=== PATIENT | female | born 1955 | race African-American/Black ===

== ENCOUNTER 2017-03-19 09:24 | Inpatient (IN) | payer OTHER ==
[2017-03-19] VITALS (19 sets, daily range): BP systolic 32–158; BP diastolic 12–128
[~2017-03-19] VITALS: Ht 160 cm; Wt 48.1 kg
--- NOTE | ~2017-03-19 | EEG ---
[facility] [place] [address] ELECTROENCEPHALOGRAM Name: RAMIRO CROOK Room #: 238-P ADM IN M.R.#: [id number] Admission: 03/19/17 Attend Phys: Noman Barrett MD Discharge: Date of : 59 Report #: [id number] THIS REPORT FOR: //name// CC: FAM unknown Noman Barrett DATE OF SERVICE: 03/19/2017 This patient is being evaluated for altered mental status. Background activity in this patient's EEG is about 7 Hz and 25 microvolt. It is a symmetrical activity, but it is slow on both sides. Photic stimulation is unremarkable. IMPRESSION: This is an abnormal EEG because it is disorganized and poorly formed. That is a nonspecific abnormality, which can occur with encephalopathy, effect of psychotropic medication, dementia, etc. Clinical correlation is recommended. Thank you very much for this referral. <ELECTRONICALLY SIGNED> By: Austin Dorsey MD 03/20/17 1227 26 55 Austin Dorsey MD /nt
--- NOTE | ~2017-03-19 | HC ---
[facility] [place] [address] CONSULTATION Name: RAMIRO CROOK Room #: 304-P [facility] IN ..#: [id number] Admission: 03/19/17 Attend Phys: Noman Barrett MD Discharge: 03/24/17 Date of : 59 Report #: [id number] THIS REPORT FOR: //name// CC: FAM unknown Noman Barrett DATE OF SERVICE: 03/23/2017 HISTORY OF PRESENT ILLNESS: The patient is a 61-year-old -Vietnamese female who was found unresponsive at her home. She was seen by the emergency medical services, sats were in the 40-50s. She had fluid in her mouth. She was noted to have an acute encephalopathy, thought to be hypoxic and metabolic. She had an elevated troponin, elevated creatinine with acute renal insufficiency. She had acute respiratory failure, aspiration pneumonia. She had cardiogenic shock. The acute hypoxic hypercapnic respiratory failure was thought to likely be secondary to a pulmonary embolism with a positive V/Q scan. She is being anticoagulated. She continues in the intensive care unit. We are seeing her in rehabilitation medicine consultation. PAST MEDICAL HISTORY: Includes history of asthma and/or COPD for which she was on 3 liters nasal prong O2 premorbidly. She is noted to have bilateral lower extremity neuropathy, history of bilateral hip replacements. MEDICATIONS: Please see the full medication listing. ALLERGIES: No known drug allergies. SOCIAL HISTORY: Lives at [facility] in an independent living apartment. Premorbid gait was with a walker. They are apparently 6 steps in. She has involved daughters. REVIEW OF SYSTEMS: Did not offer any current complaints of chest pain, shortness of breath or abdominal discomfort. She notes distal numbness of her lower extremities with the neuropathy. She has had bilateral hips replaced. No other focal extremity pain complaints, who verbalized at this time. Did not offer any complaints of headache, chills. PHYSICAL EXAMINATION: GENERAL: A 61-year-old -Vietnamese female seen in the intensive care unit. VITAL SIGNS: Last recorded temperature 98.5, pulse 86, respirations 21, blood pressure 155/75. NEUROLOGIC: She is alert, pleasant. Nasal prong O2 is in place. Facies are symmetric. She has functional range of motion of both upper extremities. Strength is grade 4-/5. DTRs are trace to 1. In her lower extremities, no focal calf swelling, functional range of motion, strength is a grade 4- to 3+/5. DTRs are trace to 1. There is a latency to her responses. [place] [address] CONSULTATION Name: RAMIRO CROOK Room #: 304-P [facility] IN ..#: [id number] Admission: 03/19/17 Attend Phys: Noman Barrett MD Discharge: 03/24/17 Date of : 59 Report #: [id number] basic 1 step commands. Tone of her upper and lower extremities appeared to be intact. ASSESSMENT: A 61-year-old -Vietnamese female with the following problem list: 1. Hypoxic encephalopathy. Neurology has been involved. 2. Acute hypoxic hypercapnic respiratory failure, which has improved. 3. Pulmonary embolism with positive V/Q scan, now being anticoagulation. 4. Cardiogenic shock. 5. Severe acidosis. 6. Apparent aspiration pneumonia. 7. Shock liver. 8. Troponin elevation likely due to PE. 9. Acute renal insufficiency with lactic acidosis that is improving. 10. History of bilateral lower extremity neuropathy. 11. History of previous bilateral hip replacements. 12. Past history of asthma for which she was on 3 liters nasal cannula premorbidly. PLAN: Therapy evaluations are underway. She will likely benefit from a short acute in-hospital inpatient rehabilitation stay to maximize her functional independence prior to returning back to her own independent living apartment. Therapies are working with her and she continues in the intensive care unit. We will be glad to follow along with you as she further medically stabilizes. Note that occupational therapy is to evaluate. We will be glad to follow along with you regarding her rehab therapy needs. <ELECTRONICALLY SIGNED> By: Glen Roth MD 03/26/17 1556 1628 0427 Glen Roth MD /nt
--- NOTE | ~2017-03-19 | HC ---
[facility] [place] [address] CONSULTATION Name: RAMIRO CROOK Room #: 238-P ADM IN M.R.#: [id number] Admission: 03/19/17 Attend Phys: Noman Barrett MD Discharge: Date of : 59 Report #: [id number] THIS REPORT FOR: //name// CC: FAM unknown Noman Barrett MD DATE OF SERVICE: 03/19/2017 REFERRING PROVIDER: Dr. Barrett. REASON FOR CONSULTATION: Respiratory failure. CHIEF COMPLAINT: Loss of consciousness. HISTORY OF PRESENT ILLNESS: Our group was asked to see the patient in consultation while hospitalized in the ICU at [facility], history very limited due to patient being on mechanical ventilatory support and limited records available as well as no family immediately present. This is a 61-year-old woman who apparently lives in a alf for unclear reasons and was found unresponsive on the floor of her assisted living apartment. EMS noted her to be hypoglycemic and have what appeared to be vomit in her airway. This was cleared and the patient received dextrose IV and on presentation to the Emergency Department was noted to be significantly hypoxemic and was emergently intubated and is now in the ICU on mechanical ventilatory support. Of note, she was also hypothermic. Chest radiograph did suggest some mild infiltrates, currently is somewhat arousable, may follow simple commands, but otherwise denies any other significant history that we can obtain. ALLERGIES: None known. PAST MEDICAL HISTORY: Uncertain. Possible underlying cardiac disease, appears to be on possible anticoagulation. PAST SURGICAL HISTORY: Uncertain. SOCIAL HISTORY: Unobtainable. FAMILY HISTORY: Unobtainable. REVIEW OF SYSTEMS: Unobtainable due to current status, although the patient is able to nod yes/no noting no chest pains, nausea, vomiting or abdominal pain at this time. PHYSICAL EXAMINATION: VITAL SIGNS: Temperature was 33.9 on presentation, pulse 108 and regular, [facility] [address] [place] [address] CONSULTATION Name: RAMIRO CROOK Room #: [address] [place] [address] [place] [facility]#: [id number] Admission: 03/19/17 Attend Phys: Noman Barrett MD Discharge: Date of : 59 Report #: [id number] respiratory rate 28, still on mechanical ventilator and blood pressure 93/49. GENERAL: This is a thin, middle-aged woman, somnolent but arousable. ENT: Endotracheal tube in place, foul smell coming from mouth. NECK: Thin, supple, no lymphadenopathy, right EJ IV is noted. LUNGS: Coarse rhonchi noted throughout. CARDIOVASCULAR: Heart was difficult to auscultate due to loud breath sounds, but regular, no murmurs. ABDOMEN: Soft, did not appear tender, diminished bowel sounds, no masses noted. EXTREMITIES: Were cool distally with 1+ pulses. No significant edema. NEUROLOGIC: The patient is sedate, but arousable and will move all extremities. LABORATORY DATA: White blood cell count 11,000, hemoglobin 11, hematocrit 39, platelet count 335. Sodium was 144, potassium 3.1, chloride 96, bicarbonate 32, BUN 39, creatinine ____, glucose 8.2, troponin 4.5. ProBNP 15,512. EKG done in the Emergency Department revealed sinus rhythm, no significant ST or T-waves changes suggesting acute [place]. Chest x-ray revealed hyperinflation suggestive of obstructive lung disease, also cardiomegaly, mild central perihilar infiltrates. IMPRESSION: 1. Altered mental status with findings of hypoglycemia, but underlying other event such as sepsis to be of concern, particularly given pulmonary infiltrates and hypothermia. 2. Probable sepsis. 3. Non-ST elevation myocardial infarction as evidenced by elevated troponin. 4. Acute respiratory failure. 5. Pneumonia, likely aspiration. 6. Respiratory acidosis. 7. Renal failure, likely acute renal insufficiency. SUGGESTIONS: 1. Sepsis protocol. 2. Await sputum and blood cultures. 3. Broad-spectrum antimicrobials. 4. Check C. difficile for C. difficile colitis. 5. Nephrology consultation. 6. Follow up arterial blood gas with increased minute volume, to see if this corrects acidosis. 7. Obtain further history once family available. 8. Trend troponins. 9. Cardiology consultation. 10. Additional recommendations to follow. Thank you for requesting our suggestions. [address] [address] CONSULTATION Name: RAMIRO CROOK Room #: 238-P ADM IN M.R.#: [id number] Admission: 03/19/17 Attend Phys: Noman Barrett MD Discharge: Date of : 59 Report #: [id number] Total critical care time 40 minutes, not including procedures. Discussed with Dr. Barrett, nursing available at the bedside. <ELECTRONICALLY SIGNED> By: Cruz Olivera MD 03/22/17 1453 1342 2108 Cruz Olivera MD /nt
--- NOTE | ~2017-03-19 | EKG ---
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: [facility] : 1955 Requested By: Syed Shipman Order Number: [id number] MD: Donell Tijerina Measurements Intervals [place] Rate: 97 P: 89 IN: 148 QRS: 94 QRSD: 112 T: -65 QT: 368 QTc: 468 Interpretive Statements Sinus rhythm Borderline intraventricular conduction delay Repol abnrm suggests ischemia, inferior leads No previous ECG available for comparison Electronically Signed On 03-20-2017 11:23:58 CDT by Donell Tijerina [email or web address] <ELECTRONICALLY SIGNED> By: Donell Tijerina MD, [facility] 03/20/17 1123 8 8 Donell Tijerina MD, FAC /EPI
--- NOTE | ~2017-03-19 | EKG ---
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 : 1955 Requested By: Donell Tijerina Order Number: [id number] MD: Donell Tijerina Measurements Intervals [place] Rate: 87 P: 86 HI: 139 QRS: 89 QRSD: 111 T: 104 QT: 463 QTc: 557 Interpretive Statements Sinus rhythm Borderline abnrm T, anterolateral leads Prolonged QT interval Compared to ECG 03/19/2017 09:29:39 Nonspecific change in the ST and T-wave segments Electronically Signed On 03-21-2017 11:55:30 CDT by Donell Tijerina [email or web address] <ELECTRONICALLY SIGNED> By: Donell Tijerina MD, [facility] 03/21/17 1155 0756 0756 Donell Tijerina MD, [facility] /EPI
--- NOTE | ~2017-03-19 | HC ---
[facility] [place] [address] CONSULTATION Name: RAMIRO CROOK Room #: 238-P [facility] IN M.R.#: [id number] Admission: 03/19/17 Attend Phys: Noman Barrett MD Discharge: Date of : 59 Report #: [id number] THIS REPORT FOR: //name// CC: FAM unknown Noman Barrett DATE OF SERVICE: 03/19/2017 ATTENDING PHYSICIAN: Dr. Barrett REASON FOR CONSULTATION: Elevated creatinine in an unresponsive patient. HISTORY OF PRESENT ILLNESS: Little is known about this 61-year-old patient brought in after being found down and unresponsive. Apparently, her daughter was here earlier. She has a previous history of CHF, has had respiratory failure and been on the ventilator previously at [facility]. PAST MEDICAL HISTORY: Otherwise is unknown. SOCIAL HISTORY: Otherwise unknown. REVIEW OF SYSTEMS: Cannot be taken. She is unresponsive on the ventilator. PHYSICAL EXAMINATION: GENERAL: This is a patient who is comatose, seen in the ICU. She is also sedated. She is on the ventilator with endotracheal tube in place. VITAL SIGNS: Blood pressure 80/69. SKIN: Shows somewhat poor turgor. SKELETAL: Shows her to be well developed, well nourished. HEENT: Extraocular movements cannot be tested. Eyes are ____ shut. Endotracheal tube is in place. NECK: No carotid bruits are heard. No lymphadenopathy is noted. CHEST: Shows diminished breath sounds bilaterally. HEART: Tones are distant, but regular. ABDOMEN: Soft with diminished bowel sounds. EXTREMITIES: Show trace peripheral edema. Peripheral pulses are diminished. LABORATORY DATA: The urinalysis did show 3+ protein with squams and a few bacteria. Hemoglobin 11.1, white count 10.5, platelets 335. Sodium 144, potassium 3.1, chloride 96, bicarbonate 32, BUN 39, creatinine 4.4, calcium is 8.2. Chest x-ray showed minimal infiltrates. CT of the head was negative. ASSESSMENT AND PLAN: 1. Elevated creatinine, acute versus chronic. I will have to try to find her daughter who is not 1here at the present time and see if we can get any further history, although I am told from the emergency room personnel that she was not [address] [address] CONSULTATION Name: RAMIRO CROOK Room #: 238-P ADM IN .R.#: [id number] Admission: 03/19/17 Attend Phys: Noman Barrett MD Discharge: Date of : 59 Report #: [id number] forthcoming with too much in the way of history, apparently has had respiratory failure and heart failure in the past and does have an elevated troponin suggesting possible acute myocardial infarction as the etiology here. Of course, a CPK will be important as she was found down. This certainly could be some degree of rhabdomyolysis and that will be checked and I will recheck her serum phosphorus here with her next blood draw. 2. Respiratory failure and high pCO2, hopefully this will improve with ventilation. I will add bicarbonate to the IV fluids in an effort to buffer that a bit. 3. Hypotension. IV fluids are being given. 4. History of congestive heart failure. <ELECTRONICALLY SIGNED> By: Kenny Bentley MD 03/23/17 0735 1241 2113 Darnell Banerjee MD /nt
--- NOTE | ~2017-03-19 | 2DMMODE ---
[facility] [address] [place] [address] 2 D/M-MODE ECHOCARDIOGRAM Name: AMBREENRAMIRO Jermaine Room #: 238-P [facility] IN .R.#: [id number] Admission: 03/19/17 Attend Phys: Noman Barrett, Discharge: Date of : 59 Date of Service: 03/19/17 1529 Report #: [id number] THIS REPORT FOR: //name// APPROVED REPORT Study performed: 03/19/2017 13:16:10 EXAM: Comprehensive 2D, Doppler, and color-flow Echocardiogram Patient Location: Bedside Room #: 238 Blood Pressure: 93/49 mmHg HR: 91 bpm Rhythm: NSR Other Information Study Quality: Adequate/only off axis apical window. Technically limited study due to limited mobility. Patient in ICU on vent.. Indications Unresponsiveness. Congestive heart failure. 2D Dimensions LVEF(%): 76.61 (>50%) IVSd: 8.78 (7-11mm) LVOT Diam: 20.33 (18-24mm) LVDd: 41.19 mm PWd: 9.71 (7-11mm) LVDs: 22.71 (25-40mm) Aortic Root: 28.58 mm Cardoza's LVEF: 76.61 % Aortic Valve AoV Peak Robin.: 1.43 m/s AO Peak Gr.: 8.22 mmHg LVOT Max P.62 mmHg LVOT Max V: 1.19 m/s MARU Vmax: 2.68 cm2 Mitral Valve E/A Ratio: 1.4 MV Decel. Time: 129.31 ms MV E Max Robin.: 1.00 m/s MV A Robin.: 0.74 m/s [facility] [address] [place] [address] 2 D/M-MODE ECHOCARDIOGRAM Name: RAMIRO CROOK Room #: 238-P [facility] IN ..#: [id number] Admission: 03/19/17 Attend Phys: Noman Barrett, Discharge: Date of : 59 Date of Service: 03/19/17 1529 Report #: [id number] MV PHT: 37.50 ms IVRT: 76.12 ms Pulmonary Valve PV Peak Robin.: 1.08 m/s PV Peak Gr.: 4.64 mmHg Tricuspid Valve TR Peak Robin.: 3.02 m/s RAP Estimate: 15.00 mmHg TR Peak Gr.: 36.56 mmHg RVSP: 52.00 mmHg Left Ventricle The left ventricle is normal size. Flattened septum consistent with right ventricular pressure overload. There is normal left ventricular wall thickness. The left ventricular systolic function is normal. The left ventricular ejection fraction is within the normal range. LVEF is 55%. This study is not technically sufficient to allow evaluation of the LV diastolic function. Right Ventricle Right ventricle is moderate to severely dilated. Right ventricle is mildly hypokinetic. Atria The left atrium size is normal. Right atrium is severely dilated. Aortic Valve The aortic valve is normal in structure. Mild to moderate aortic regurgitation. There is no aortic valvular stenosis. Mitral Valve The mitral valve is normal in structure. Mild mitral regurgitation. No evidence of mitral valve stenosis. Tricuspid Valve The tricuspid valve is normal in structure. There is moderate tricuspid regurgitation. The right atrial pressure is estimated at 15 mmHg. There is moderate pulmonary hypertension with an estimated PAP of 52 mmHg. Pulmonic Valve The pulmonary valve is normal in structure. Mild pulmonic regurgitation. Great Vessels The aortic root is normal in size. IVC is dilated and collapses [facility] [address] [place] [address] 2 D/M-MODE ECHOCARDIOGRAM Name: RAMIRO CROOK Jermaine Room #: 238-P [facility] IN ..#: [id number] Admission: 03/19/17 Attend Phys: Noman Barrett, Discharge: Date of : 59 Date of Service: 03/19/17 1529 Report #: [id number] <50% with inspiration. Pericardium There is no pericardial effusion. <Conclusion> The left ventricular systolic function is normal. Flattened septum consistent with right ventricular pressure overload. LVEF 55%. The aortic valve is normal in structure without stenosis or insufficiency RV enlargement and hypokinesis. RA enlargement The mitral valve is normal in structure. Mild mitral regurgitation. Pulmonary artery pressure of 40mmHg IVC is dilated and collapses <50% with inspiration. There is no pericardial effusion. <ELECTRONICALLY SIGNED> By: Donell Tijerina MD, [facility] 03/19/17 1529 1529 1529 Donell Tijerina MD, FACC /INF
[2017-03-19 09:54] LABS: HEMATOCRIT 38.8 % (37.0-47.0); HEMOGLOBIN 11.1 gm/dL (12.0-15.0); MCHC 28.7 g/dL (28.0-37.0); MCV 83.6 fL (80.0-100.0); RBC 4.64 mil/uL (4.20-5.00); RDW 21.3 % (10.5-14.5); WBC 10.5 thou/uL (4.0-11.0)
[2017-03-19 09:57] LABS: ANION GAP 16 mmol/L (7-16); BUN 39 mg/dL (7-18); CALCIUM 8.2 mg/dL (8.5-10.1); CHLORIDE 96 mmol/L (98-107); CO2 32 mmol/L (21-32); CREATININE 4.4 mg/dL (0.6-1.0); GLUCOSE 91 mg/dL (74-106); POTASSIUM 3.1 mmol/L (3.5-5.1); SODIUM 144 mmol/L (136-145)
[2017-03-19 10:06] LABS: APTT 28.7 Seconds (24.5-32.8)
[2017-03-19 10:07] LABS: PROTIME 26.2 Seconds (9.3-11.4)
[2017-03-19 10:08] LABS: INR 2.5
[2017-03-19 10:11] LABS: NT-PRO BRAIN NAT PEPTIDE 15512 pg/mL (<300); SALICYLATE < 2.8 mg/dL (2.8-20.0)
[2017-03-19 10:13] LABS: TROPONIN-I 4.51 ng/mL (<0.04-0.07)
[2017-03-19 10:24] LABS: URINE BLOOD 3+ (Negative); URINE COLOR YELLOW; URINE GLUCOSE-RANDOM* NEGATIVE (Negative); URINE KETONES NEGATIVE (Negative); URINE LEUKOCYTES-REFLEX NEGATIVE (Negative); URINE PROTEIN (DIPSTICK) 3+ (Negative); URINE SPECIFIC GRAVITY 1.025 (1.003-1.035); URINE UROBILINOGEN 0.2 E.U./dl (0.2-1.0)
[2017-03-19 10:26] LABS: ICTOTEST (BILI CONFIRMATORY) Negative (Negative); URINE BILIRUBIN NEGATIVE (Negative)
[2017-03-19 10:31] LABS: ABG SAMPLE TYPE ARTERIAL; BE(vivo) -2.9 mmol/L (-2 to +3); HCO3 27.2 mmol/L (22.0-26.0); LACTATE 10.71 mmol/L (0.5-2.0); O2(CT) 17.3 mL/dL (15.0-23.0); O2Hb 96.2 % (92.0-98.0); PCO2 77.3 mmHg (35.0-45.0); PO2 258.9 mmHg (80.0-100.0); STICK SITE L.BRACHIAL; TIDAL VOLUME 450 ml; pH 7.165 (7.360-7.450); sO2 99.4 % (92.0-98.0); tCO2 29.6 mmol/L (24.0-30.0)
[2017-03-19 10:34] LABS: SQUAMOUS >10 Many /LPF (0-3)
[2017-03-19 10:35] LABS: CASTS None Seen /LPF (None Seen); CRYSTALS None Seen /LPF (None Seen)
[2017-03-19 10:37] LABS: URINE RBC 3-10 Few /HPF (0-2); URINE WBC-REFLEX 0-5 Rare /HPF (0-5)
[2017-03-19 10:39] LABS: AMORPHOUS URATES Moderate /LPF (None Seen); AMP/METHAMP Negative (Negative); BARBITURATES Negative (Negative); BENZODIAZEPINES POSITIVE (Negative); COCAINE Negative (Negative); METHADONE Negative (Negative); OPIATES POSITIVE (Negative); PCP Negative (Negative); THC Negative (Negative)
[2017-03-19 12:04] LABS: ABG SAMPLE TYPE ARTERIAL; BE(vivo) -3.2 mmol/L (-2 to +3); HCO3 27.4 mmol/L (22.0-26.0); O2(CT) 15.6 mL/dL (15.0-23.0); O2Hb 92.5 % (92.0-98.0); pH 7.139 (7.360-7.450); sO2 95.5 % (92.0-98.0); tCO2 29.9 mmol/L (24.0-30.0)
[2017-03-19 12:05] LABS: LACTATE 9.17 mmol/L (0.5-2.0); PCO2 82.5 mmHg (35.0-45.0); STICK SITE L.BRACHIAL; TIDAL VOLUME 450 ml
[2017-03-19 14:20] LABS: ABG SAMPLE TYPE ARTERIAL; BE(vivo) 0.6 mmol/L (-2 to +3); HCO3 28.4 mmol/L (22.0-26.0); LACTATE 7.84 mmol/L (0.5-2.0); O2(CT) 15.6 mL/dL (15.0-23.0); O2Hb 95.5 % (92.0-98.0); PCO2 61.6 mmHg (35.0-45.0); PO2 115.2 mmHg (80.0-100.0); STICK SITE LINE; pH 7.281 (7.360-7.450); sO2 97.6 % (92.0-98.0); tCO2 30.3 mmol/L (24.0-30.0)
[2017-03-19 14:21] LABS: TIDAL VOLUME 450 ml
[2017-03-19 14:48] LABS: APTT 32.2 Seconds (24.5-32.8); FIBRINOGEN 151.4 mg/dL (210-360)
[2017-03-19 14:49] LABS: HEMATOCRIT 34.9 % (37.0-47.0); HEMOGLOBIN 10.3 gm/dL (12.0-15.0); MCH 23.8 pg (26.0-34.0); MCHC 29.6 g/dL (28.0-37.0); MCV 80.5 fL (80.0-100.0); PLATELET COUNT 297 thou/uL (150-400); RBC 4.33 mil/uL (4.20-5.00); RDW 20.8 % (10.5-14.5); WBC 19.5 thou/uL (4.0-11.0)
[2017-03-19 14:50] LABS: MANUAL DIFF YES
[2017-03-19 15:06] LABS: CALCIUM 5.6 mg/dL (8.5-10.1); POTASSIUM 2.8 mmol/L (3.5-5.1); TROPONIN-I 3.26 ng/mL (<0.04-0.07)
[2017-03-19 15:39] LABS: ABSOLUTE NEUTROPHILS 18.5 thou/uL (1.4-8.2); TOTAL CELL COUNT 100
[2017-03-19 15:40] LABS: ANISOCYTOSIS 2+; HYPOCHROMASIA 2+; POLYCHROMASIA 1+
[2017-03-19 15:44] LABS: POTASSIUM 2.8 mmol/L (3.5-5.1)
[2017-03-19 15:45] LABS: CALCIUM 5.6 mg/dL (8.5-10.1); CREATININE 2.9 mg/dL (0.6-1.0)
[2017-03-19 15:46] LABS: ALBUMIN 2.4 g/dL (3.4-5.0); PHOSPHORUS 5.2 mg/dL (2.5-4.9)
[2017-03-19 17:12] LABS: ABG SAMPLE TYPE VENOUS; BE(vivo) 2.4 mmol/L (-2 to +3); HCO3 27.7 mmol/L (22.0-26.0); LACTATE 3.67 mmol/L (0.5-2.0); O2Hb VENOUS 74.1 (65.0-85.0); PCO2 VENOUS 46.2 mmHg (41.0-51.0); PO2 VENOUS 44.1 mmHg (35.0-45.0); STICK SITE LINE; TIDAL VOLUME 450 ml; sO2 VENOUS 79.5 % (65.0-85.0); tCO2 29.1 mmol/L (24.0-30.0)
[2017-03-19 18:36] LABS: URINE BILIRUBIN 1+ (Negative); URINE BLOOD 3+ (Negative); URINE COLOR YELLOW; URINE GLUCOSE-RANDOM* NEGATIVE (Negative); URINE KETONES NEGATIVE (Negative); URINE NITRITE NEGATIVE (Negative); URINE PROTEIN (DIPSTICK) 2+ (Negative); URINE SPECIFIC GRAVITY >= 1.030 (1.003-1.035)
[2017-03-19 18:38] LABS: ICTOTEST (BILI CONFIRMATORY) Negative (Negative)
[2017-03-19 18:45] LABS: CREATININE 3.8 mg/dL (0.6-1.0)
[2017-03-19 18:46] LABS: SQUAMOUS 0-3 Few /LPF (0-3)
[2017-03-19 18:46] LABS: APTT 28.1 Seconds (24.5-32.8)
[2017-03-19 18:47] LABS: HYALINE CASTS 0-3 Few /LPF (None Seen); URINE RBC 3-10 Few /HPF (0-2); URINE WBC 0-5 Rare /HPF (0-5)
[2017-03-19 18:48] LABS: BACTERIA 1-9 Few /HPF (None Seen); CRYSTALS None Seen /LPF (None Seen); FINE GRANULAR CASTS 0-3 Few /LPF (None Seen)
[2017-03-19 18:50] LABS: POTASSIUM 3.9 mmol/L (3.5-5.1)
[2017-03-19 18:51] LABS: TROPONIN-I 5.6 ng/mL (<0.04-0.07)
[2017-03-19 18:58] LABS: FIBRINOGEN 192.5 mg/dL (210-360)
[2017-03-19 21:22] LABS: ABG SAMPLE TYPE VENOUS; BE(vivo) 8.1 mmol/L (-2 to +3); HCO3 33.9 mmol/L (22.0-26.0); LACTATE 2.96 mmol/L (0.5-2.0); O2(CT) 11.2 mL/dL (15.0-23.0); O2Hb VENOUS 69.6 (65.0-85.0); PCO2 VENOUS 52.9 mmHg (41.0-51.0); PO2 VENOUS 40.3 mmHg (35.0-45.0); STICK SITE LINE; TIDAL VOLUME 450 ml; sO2 VENOUS 75.6 % (65.0-85.0); tCO2 35.5 mmol/L (24.0-30.0)
[2017-03-19 21:55] LABS: CALCIUM 7.2 mg/dL (8.5-10.1); CREATININE 3.5 mg/dL (0.6-1.0); POTASSIUM 3.4 mmol/L (3.5-5.1)
[2017-03-19 22:16] LABS: INR 2.4; PROTIME 25.4 Seconds (9.3-11.4)
[2017-03-19 22:40] LABS: ABG SAMPLE TYPE VENOUS; BE(vivo) 9.5 mmol/L (-2 to +3); HCO3 34.9 mmol/L (22.0-26.0); LACTATE 2.42 mmol/L (0.5-2.0); O2(CT) 11.3 mL/dL (15.0-23.0); O2Hb VENOUS 71.7 (65.0-85.0); PCO2 VENOUS 51.3 mmHg (41.0-51.0); PO2 VENOUS 41.2 mmHg (35.0-45.0); STICK SITE LINE; TIDAL VOLUME 450 ml; sO2 VENOUS 78.1 % (65.0-85.0); tCO2 36.4 mmol/L (24.0-30.0)
[2017-03-19 23:34] LABS: ABG SAMPLE TYPE VENOUS; BE(vivo) 8.4 mmol/L (-2 to +3); HCO3 33.9 mmol/L (22.0-26.0); LACTATE 2.98 mmol/L (0.5-2.0); O2(CT) 12.3 mL/dL (15.0-23.0); O2Hb VENOUS 77.1 (65.0-85.0); PO2 VENOUS 46.6 mmHg (35.0-45.0); sO2 VENOUS 83.4 % (65.0-85.0); tCO2 35.4 mmol/L (24.0-30.0)
[2017-03-19 23:35] LABS: STICK SITE LINE; TIDAL VOLUME 450 ml
[2017-03-20 00:34] LABS: ABG SAMPLE TYPE VENOUS; HCO3 33.7 mmol/L (22.0-26.0); LACTATE 2.16 mmol/L (0.5-2.0); O2(CT) 11.5 mL/dL (15.0-23.0); O2Hb VENOUS 73.3 (65.0-85.0); PCO2 VENOUS 47.1 mmHg (41.0-51.0); PO2 VENOUS 41.5 mmHg (35.0-45.0); STICK SITE LINE; sO2 VENOUS 79.8 % (65.0-85.0); tCO2 35.2 mmol/L (24.0-30.0)
[2017-03-20 00:35] LABS: TIDAL VOLUME 450 ml
[2017-03-20 05:10] LABS: HEMATOCRIT 31.5 % (37.0-47.0); HEMOGLOBIN 9.6 gm/dL (12.0-15.0); MCHC 30.6 g/dL (28.0-37.0); MCV 78.5 fL (80.0-100.0); PLATELET COUNT 303 thou/uL (150-400); RBC 4.01 mil/uL (4.20-5.00); RDW 20.9 % (10.5-14.5); WBC 14.1 thou/uL (4.0-11.0)
[2017-03-20 05:14] LABS: MANUAL DIFF YES
[2017-03-20 05:29] LABS: ALBUMIN 2.8 g/dL (3.4-5.0); CALCIUM 7.8 mg/dL (8.5-10.1); TOTAL BILIRUBIN 0.9 mg/dL (<0.1-1.0); TOTAL PROTEIN 5.7 g/dL (6.4-8.2)
[2017-03-20 05:34] LABS: POTASSIUM 2.8 mmol/L (3.5-5.1)
[2017-03-20 08:15] LABS: ABSOLUTE NEUTROPHILS 13.7 thou/uL (1.4-8.2); TOTAL CELL COUNT 100
[2017-03-20 08:16] LABS: ANISOCYTOSIS 2+
[2017-03-20 08:17] LABS: HYPOCHROMASIA 1+; MICROCYTES 2+; POIKILOCYTOSIS 1+; TARGET CELLS OCCASIONAL
[2017-03-20 10:36] LABS: ABG SAMPLE TYPE ARTERIAL; BE(vivo) 9.9 mmol/L (-2 to +3); HCO3 35.6 mmol/L (22.0-26.0); O2(CT) 15.3 mL/dL (15.0-23.0); O2Hb 96.4 % (92.0-98.0); PCO2 53.9 mmHg (35.0-45.0); PO2 107.5 mmHg (80.0-100.0); pH 7.438 (7.360-7.450); tCO2 37.3 mmol/L (24.0-30.0)
[2017-03-20 10:37] LABS: STICK SITE LINE; TIDAL VOLUME 450 ml
[2017-03-20 10:40] VITALS: BP 127/87
[2017-03-20 17:47] LABS: MAGNESIUM 1.3 mg/dL (1.8-2.4); POTASSIUM 3.1 mmol/L (3.5-5.1)
[2017-03-21] VITALS (7 sets, daily range): BP systolic 98–145; BP diastolic 55–76
[2017-03-21 05:05] LABS: HEMOGLOBIN 9.6 gm/dL (12.0-15.0); MCH 23.7 pg (26.0-34.0); PLATELET COUNT 304 thou/uL (150-400); RBC 4.05 mil/uL (4.20-5.00); RDW 21.2 % (10.5-14.5); WBC 18.8 thou/uL (4.0-11.0)
[2017-03-21 05:09] LABS: MANUAL DIFF YES
[2017-03-21 05:11] LABS: POTASSIUM 3.4 mmol/L (3.5-5.1)
[2017-03-21 05:17] LABS: ALBUMIN 2.7 g/dL (3.4-5.0); PHOSPHORUS 3.5 mg/dL (2.5-4.9); TOTAL BILIRUBIN 0.8 mg/dL (<0.1-1.0); TOTAL PROTEIN 5.8 g/dL (6.4-8.2)
[2017-03-21 07:00] LABS: MAGNESIUM 2.3 mg/dL (1.8-2.4)
[2017-03-21 10:16] LABS: ABSOLUTE NEUTROPHILS 17.3 thou/uL (1.4-8.2); ANISOCYTOSIS 1+; METAMYELOCYTES 1 %; TOTAL CELL COUNT 100
[2017-03-21 10:17] LABS: HYPOCHROMASIA 1+; LARGE PLATELETS OCCASIONAL; POIKILOCYTOSIS SLIGHT; POLYCHROMASIA SLIGHT
[2017-03-21 10:33] LABS: ABG SAMPLE TYPE ARTERIAL; BE(vivo) 11.5 mmol/L (-2 to +3); LACTATE 1.54 mmol/L (0.5-2.0); O2(CT) 13.7 mL/dL (15.0-23.0); O2Hb 93.4 % (92.0-98.0); PCO2 53.3 mmHg (35.0-45.0); PO2 77.5 mmHg (80.0-100.0); pH 7.459 (7.360-7.450); sO2 95.8 % (92.0-98.0); tCO2 38.6 mmol/L (24.0-30.0)
[2017-03-21 10:34] LABS: ABG COMMENT RSBI 28.; Pressure Support 8 cm H20; STICK SITE ALINE
[2017-03-21 13:48] LABS: INR 1.6; PROTIME 16.7 Seconds (9.3-11.4)
[2017-03-21] MEDS ORDERED: NEURONTIN 400400 M1 PO (20:20)
[2017-03-21] MEDS ORDERED: TRAMADOL 50 MG50 MG PO (20:21)
[2017-03-22] VITALS (32 sets, daily range): BP systolic 100–157; BP diastolic 57–92
[2017-03-22 03:52] LABS: HEMATOCRIT 31.3 % (37.0-47.0); HEMOGLOBIN 9.5 gm/dL (12.0-15.0); MCH 23.8 pg (26.0-34.0); MCHC 30.4 g/dL (28.0-37.0); MCV 78.4 fL (80.0-100.0); RBC 3.99 mil/uL (4.20-5.00); RDW 21.3 % (10.5-14.5); WBC 19.6 thou/uL (4.0-11.0)
[2017-03-22 04:02] LABS: CALCIUM 8.4 mg/dL (8.5-10.1); CREATININE 1.9 mg/dL (0.6-1.0); POTASSIUM 3.8 mmol/L (3.5-5.1)
[2017-03-22 04:06] LABS: APTT 48.3 Seconds (24.5-32.8); INR 1.4; PROTIME 14.7 Seconds (9.3-11.4)
[2017-03-22 04:07] LABS: PHOSPHORUS 3.5 mg/dL (2.5-4.9); TOTAL BILIRUBIN 1.1 mg/dL (<0.1-1.0); TOTAL PROTEIN 6.3 g/dL (6.4-8.2)
[2017-03-23] VITALS (11 sets, daily range): BP systolic 112–155; BP diastolic 58–100
[2017-03-23 05:26] LABS: HEMATOCRIT 30.1 % (37.0-47.0); HEMOGLOBIN 8.9 gm/dL (12.0-15.0); MCH 23.7 pg (26.0-34.0); MCHC 29.5 g/dL (28.0-37.0); MCV 80.3 fL (80.0-100.0); RBC 3.75 mil/uL (4.20-5.00); RDW 21.3 % (10.5-14.5); WBC 13.9 thou/uL (4.0-11.0)
[2017-03-23 05:43] LABS: CALCIUM 8.5 mg/dL (8.5-10.1); CREATININE 1.7 mg/dL (0.6-1.0); POTASSIUM 4.2 mmol/L (3.5-5.1)
[2017-03-23 05:47] LABS: ALBUMIN 2.8 g/dL (3.4-5.0); TOTAL BILIRUBIN 0.8 mg/dL (<0.1-1.0); TOTAL PROTEIN 6.1 g/dL (6.4-8.2)
[2017-03-23 05:49] LABS: INR 1.3; PROTIME 13.7 Seconds (9.3-11.4)
[2017-03-23 05:54] LABS: MAGNESIUM 2.1 mg/dL (1.8-2.4); PHOSPHORUS 3.5 mg/dL (2.5-4.9)
[2017-03-24 04:00] VITALS: BP 112/63
[2017-03-24 06:43] LABS: HEMATOCRIT 30.4 % (37.0-47.0); HEMOGLOBIN 8.9 gm/dL (12.0-15.0); MCH 23.9 pg (26.0-34.0); MCHC 29.4 g/dL (28.0-37.0); MCV 81.4 fL (80.0-100.0); RBC 3.74 mil/uL (4.20-5.00); RDW 21.4 % (10.5-14.5); WBC 11.3 thou/uL (4.0-11.0)
[2017-03-24 06:53] LABS: INR 1.6; PROTIME 16.8 Seconds (9.3-11.4)
[2017-03-24 07:04] LABS: ANION GAP < 0 mmol/L (7-16); BUN 36 mg/dL (7-18); CALCIUM 8.6 mg/dL (8.5-10.1); CHLORIDE 103 mmol/L (98-107); CO2 40 mmol/L (21-32); CREATININE 1.1 mg/dL (0.6-1.0); GLUCOSE 136 mg/dL (74-106); POTASSIUM 4.6 mmol/L (3.5-5.1); SODIUM 142 mmol/L (136-145)
[2017-03-24 07:33] VITALS: BP 137/80
[2017-03-24] MEDS ORDERED: COUMADIN 5 MG TA5 M1 PO (11:19)
[2017-03-24] MEDS ORDERED: ENOXAPARIN80 MG/0.1 SUBQ (11:19)
[2017-03-24] MEDS ORDERED: DUONEB 2.5-0.5 M3 ML INH (11:19)
[2017-03-24] MEDS ORDERED: AUGMENTIN 500-1 EACH PO (11:19)
[2017-03-24] MEDS ORDERED: NEURONTIN 300300 M1 PO (11:20)
[2017-03-24] MEDS ORDERED: PREDNISONE 20 M20 M1 PO (11:20)
[2017-03-24] MEDS ORDERED: HUMALOG100 UNIT/1 SUBQ (11:21)
== END 2017-03-24 17:11 | DRG 871 ==
LOC: ER 09:24 → ICU 11:44 → EROBS 11:44 → ICU 12:15 → 3N 03-23 21:08
PROVIDERS: Emergency Medicine; Hospitalist; Internal Medicine; Internal Medicine Nephrology; Internal Medicine Pulmonary Disease
DX: A41.9 Sepsis, unspecified organism (principal); J96.01 Acute respiratory failure with hypoxia; J69.0 Pneumonitis due to inhalation of food and vomit; G93.40 Encephalopathy, unspecified; I26.99 Other pulmonary embolism without acute cor pulmonale; I21.4 Non-ST elevation (NSTEMI) myocardial infarction; K72.00 Acute and subacute hepatic failure without coma; R65.21 Severe sepsis with septic shock; J96.02 Acute respiratory failure with hypercapnia; N17.9 Acute kidney failure, unspecified; E87.2 Acidosis; G93.1 Anoxic brain damage, not elsewhere classified; D68.9 Coagulation defect, unspecified; I50.9 Heart failure, unspecified; I95.9 Hypotension, unspecified; T68.XXXA Hypothermia, initial encounter; J44.9 Chronic obstructive pulmonary disease, unspecified; Z96.643 Presence of artificial hip joint, bilateral; E87.6 Hypokalemia; M48.00 Spinal stenosis, site unspecified; N18.9 Chronic kidney disease, unspecified; D64.9 Anemia, unspecified; E16.2 Hypoglycemia, unspecified; Z99.81 Dependence on supplemental oxygen
CPT/HCPCS: 10078; 10096

== ENCOUNTER 2017-03-24 12:32 | Inpatient (IN) | payer OTHER ==
[~2017-03-24] VITALS: Ht 160 cm; Wt 75.5 kg
--- NOTE | ~2017-03-24 | 2DMMODE ---
[facility] [address] [employer] [address] 2 D/M-MODE ECHOCARDIOGRAM Name: RAMIRO CROOK Room #: 503-P ADM IN M.R.#: [id number] Admission: 03/24/17 Attend Phys: Glen Roth, Discharge: Date of : 59 Date of Service: 03/25/17 1526 Report #: [id number] THIS REPORT FOR: //name// APPROVED REPORT Study performed: 03/25/2017 13:07:17 EXAM: Comprehensive 2D, Doppler, and color-flow Echocardiogram Patient Location: Bedside Room #: 503 Status: routine Other Information Study Quality: Good Indications Limited follow up echo. PE/RV dysfunction. (Complete echo done 03/19/2017) 2D Dimensions RVDd: 45.45 mm Tricuspid Valve TR Peak Robin.: 3.54 m/s RAP Estimate: 10.00 mmHg TR Peak Gr.: 50.12 mmHg RVSP: 60.00 mmHg Left Ventricle The left ventricle is normal size. Flattened septum consistent with right ventricular volume and pressure overload. Left ventricular systolic function is normal. LVEF is 55%. Right Ventricle Right ventricle is dilated. Right ventricular function appears low normal. Atria Left atrium is dilated. Right atrium is dilated. Aortic Valve The aortic valve is normal in structure. Mild to moderate aortic regurgitation. Mitral Valve The mitral valve is normal in structure. Mild to moderate mitral regurgitation. [facility] [address] [place] [address] 2 D/M-MODE ECHOCARDIOGRAM Name: RAMIRO CROOK Room #: 503-P ADM IN M.R.#: [id number] Admission: 03/24/17 Attend Phys: Glen Roth, Discharge: Date of : 59 Date of Service: 03/25/17 1526 Report #: [id number] Tricuspid Valve The tricuspid valve is normal in structure. There is moderate tricuspid regurgitation. The right atrial pressure is estimated at 10 mmHg. There is moderate pulmonary hypertension with an estimated PAP of 60mmHg. Pulmonic Valve The pulmonary valve is normal in structure. Mild pulmonic regurgitation. Great Vessels IVC is dilated and collapses <50% with inspiration. Pericardium Small anterior pericardial effusion. <Conclusion> Left ventricular systolic function is normal. Flattened septum consistent with right ventricular volume and pressure overload. LVEF 55%. Right ventricle is mildly dilated. Right atrium is dilated. There is moderate pulmonary hypertension with an estimated PAP of 60mmHg. The RV appears smaller and more dynamic than on a study dated 03/19/2017 <ELECTRONICALLY SIGNED> By: Donell Tijerina MD, [facility] 03/25/17 1526 1526 1526 Donell Tijerina MD, FACC /INF
--- NOTE | ~2017-03-24 | H ---
[facility] [place] [address] HISTORY AND PHYSICAL Name: RAMIRO CROOK Room #: 503-P ADM IN M.R.#: [id number] Admission: 03/24/17 Attend Phys: Glen Roth MD Discharge: Date of : 59 Report #: [id number] THIS REPORT FOR: //name// CC: Glen Roth [facility] unknown DATE OF SERVICE: 03/24/2017 HISTORY OF PRESENT ILLNESS: The patient is a 61-year-old -[place] female who was originally found unresponsive at her home. She was seen by emergency medical services and sats were in the 40s-50s. She was noted to have an acute encephalopathy thought to be hypoxic and metabolic. She had elevated troponin, elevated creatinine with acute renal insufficiency. She had hypoxic respiratory failure with aspiration pneumonia. She had cardiogenic shock. The acute hypoxic hypercapnic respiratory failure was thought to likely be secondary to a pulmonary embolism with a positive V/Q scan. She was in the intensive care unit gradually stabilized and was noted to have significant functional mobility and ADL deficits as well as cognitive issues with her encephalopathy. She has now been admitted for acute in-hospital inpatient rehabilitation. PAST MEDICAL HISTORY: Includes history of asthma and/or COPD for which she was on 3 liters nasal prong O2. She has bilateral lower extremity neuropathy, history of bilateral hip replacements. MEDICATIONS: Please see the full medication listing. ALLERGIES: No known drug allergies. SOCIAL HISTORY: Lives at [facility] in an independent living apartment. Premorbidly her gait was with a walker. There are apparently 6 steps in. She has involved daughters. 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 REVIEW OF SYSTEMS: No complaints of chest pain, shortness of breath or abdominal discomfort. She has the distal numbness over lower extremities. Bilateral hips were replaced. No other focal extremity pain complaints. She did not offer any complaints of headache or chills. She was somewhat somnolent and sleepy when I saw her. PHYSICAL EXAMINATION: GENERAL: A 61-year-old -[place] female who was seen earlier today. VITAL SIGNS: Temperature 98.3, pulse 63, respirations 18, blood pressure 126/63. She was somewhat sleepy, but followed basic 1 step commands. Facies are symmetric. HEENT: Appeared benign. CHEST: Some decreased breath sounds diffuse throughout. [address] [address] HISTORY AND PHYSICAL Name: RAMIRO CROOK Room #: 503-P [facility] IN .R.#: [id number] Admission: 03/24/17 Attend Phys: Glen Roth MD Discharge: Date of : 59 Report #: [id number] CARDIAC: Sounded regular rate and rhythm. ABDOMEN: Bowel sounds positive, nontender. GENITOURINARY AND RECTAL: Deferred. EXTREMITIES: Nasal prong O2 is in place. Functional range of motion of both upper extremities with strength grade 4-/5. DTRs are trace to 1. In her lower extremities, no focal calf swelling, functional range of motion with strength grade 4- to 3+/5. DTRs are trace to 1. Follows basic 1 step commands without difficulty. There has been latency to her responses. Tone of the upper and lower extremities appeared intact. ASSESSMENT: A 61-year-old -[place] female with the following problem list: 1. Hypoxic encephalopathy. There was a component of metabolic encephalopathy as well. 2. Acute hypoxic hypercapnic respiratory failure, which resolved. She continues on nasal prong O2. 3. Apparent pulmonary embolism with positive V/Q scan. 4. Cardiogenic shock. 5. Severe acidosis. 6. Apparent aspiration pneumonia. 7. Shock liver. 8. Troponin elevation likely due to pulmonary embolism. 9. Acute renal insufficiency that is improving. 10. History of bilateral lower extremity neuropathy. 11. History of previous bilateral hip replacements. 12. Past history of asthma for which she was on 3 liters nasal cannula. PLAN: The patient is admitted for acute in-hospital inpatient rehabilitation. From a postadmission physician evaluation perspective, there are no relevant changes since the preadmission screening. Please see the above review of prior and current medical and functional conditions and comorbidities. Please see the patient's previous and current functional status. As far as risk of complications, the patient has multiple medical comorbidities as noted above. Initial plan of care involves the interdisciplinary acute inpatient rehabilitation program with the goal of maximizing the patient's functional independence, so that she can hopefully return back to her prior living situation. Measurable functional goals would be for her to become modified independent with transfers, mobility and ADLs, so that she can hopefully return back to her prior living situation. Prognosis is reasonably good with estimated length of stay probably fairly short. She has been transferring with standby assistance. She does have some higher level cognitive deficits that are noted. Potential barriers would include the multiple medical comorbidities and decreased functional status. The patient meets diagnostic criteria for an acute in-hospital inpatient rehabilitation stay. She meets medical necessity criteria. Pulmonary medicine [facility] [address] [place] [address] HISTORY AND PHYSICAL Name: RAMIRO CROOK Room #: 503-P ADM IN M.R.#: [id number] Admission: 03/24/17 Attend Phys: Glen Roth MD Discharge: Date of : 59 Report #: [id number] is involved as well as internal medicine and cardiology has been consulted. Note consideration for a followup echocardiogram. She is on anticoagulation. She does have the tolerance for an acute rehabilitation level and has appropriate discharge goals back to the home setting. <ELECTRONICALLY SIGNED> By: Glen Roth MD 03/26/17 1556 [id number] Glen Roth MD /nt
--- NOTE | ~2017-03-24 | PLAN ---
[facility] [place] [address] REHAB UNIT PLAN OF CARE Name: RAMIRO CROOK Room #: 503-P ADM IN M.R.#: [id number] Admission: 03/24/17 Attend Phys: Glen Roth MD Discharge: Date of : 59 Report #: [id number] THIS REPORT FOR: //name// CC: Glen Roth [facility] unknown HISTORY OF PRESENT ILLNESS: The patient is seen back today in followup. She is in no distress. Last recorded temperature 36.7, pulse 73, respirations 18, blood pressure 137/73. She is alert, nasal prong O2 is in place. No focal calf swelling. She transfers with standby assistance. She is ambulating 60 feet standby assistance with a front-wheeled walker. She is working on dressing activities. In speech therapy, she is noted to have mild comprehensive deficits. ASSESSMENT: 1. Hypoxic encephalopathy. There was a component of metabolic encephalopathy as well. She is improving in this regard. 2. Acute hypoxic hypercapnic respiratory failure, which resolved. She is continuing on nasal prong O2. 3. Apparent pulmonary embolism with positive V/Q scan. 4. Cardiogenic shock. 5. Severe acidosis. 6. Apparent aspiration pneumonia. 7. Shock liver that has improved/resolved. 8. Troponin elevation likely due to pulmonary embolism. 9. Acute renal insufficiency that has resolved. 10. History of bilateral lower extremity neuropathy. 11. History of previous bilateral hip replacements. 12. Past history of asthma for which she was on 3 liters nasal cannula. PLAN: The overall plan of care is based on the preadmission screen, post-admission physician evaluation and information garnered from therapy assessments: 1. Estimated length of stay will be through Wednesday. We are planning discharge to home on Wednesday03/29/2017. A limited discussion with some of the therapy team members was held this morning. 2. Medical prognosis is reasonably good. 3. Anticipated interventions includes the interdisciplinary acute inpatient rehabilitation program with PT, OT, nursing assisting regarding medication management, skin care prophylaxis, bowel and bladder issues and nursing education. Case management is involved as well as the multiple solutions market consultant physicians. 4. Anticipated functional outcomes would be for the patient to become modified independent with transfers, mobility and ADLs and further improvement in cognition, so that she can return back to the home setting. 5. Discharge destination would be back home. She does have assistance with her grandson who is a [place] [address] REHAB UNIT PLAN OF CARE Name: RAMIRO CROOK Room #: 503-P [facility] IN M.R.#: [id number] Admission: 03/24/17 Attend Phys: Glen Roth MD Discharge: Date of : 59 Report #: [id number] 6. Expected therapy by discipline includes PT, OT and speech 1 hour per day each five days a week throughout the duration of the acute inpatient rehabilitation stay. ADDENDUM: The patient did miss some therapy yesterday secondary to refusal. <ELECTRONICALLY SIGNED> By: Glen Roth MD 03/26/17 1556 [id number] Glen Roth MD /nt
--- NOTE | ~2017-03-24 | HC ---
[facility] [place] [address] CONSULTATION Name: RAMIRO CROOK Room #: 503-P ADM IN M.R.#: [id number] Admission: 03/24/17 Attend Phys: Glen Roth MD Discharge: Date of : 59 Report #: [id number] THIS REPORT FOR: //name// CC: Glen Roth [facility] unknown DATE OF SERVICE: 03/27/2017 ATTENDING PHYSICIAN: Glen Roth M.D. MARINATOR: Bowen aNvas, Ph.D. CLINICAL PRESENTATION: The patient is a 61-year-old -Luxem[place] female admitted to the [facility] rehabilitation unit for a comprehensive inpatient rehabilitation program to improve functional mobility, activities of daily living and self-care and mental status secondary to deficits from hypoxic encephalopathy. She was found down and unresponsive in her home. She had elevated troponin, creatinine and was in acute renal insufficiency. Hypoxic respiratory failure with aspiration pneumonia was noted. Her assessment on the rehabilitation unit includes hypoxic encephalopathy, acute hypoxic hypercapnic respiratory failure, which is resolved, apparent pulmonary embolism with positive VQ scan, cardiogenic shock, severe acidosis, aspiration pneumonia, shock liver, troponin elevation due to pulmonary embolism, acute renal insufficiency, history of bilateral lower extremity neuropathy, previous bilateral hip replacements and a past history of asthma, for which she was on 3 mL of nasal cannula. A complete description of her medical condition, history and medications can be found in her medical record. Neuropsychological consultation was requested to provide assistance in the assessment of cognitive and emotional status and to provide recommendations and services. Prior to this recent admission, she was living at an apartment in independent living unit. She was independent with gait utilizing a walker. She reports having 4 children. Two live within the [place] area. She said she has one sister living, who is in [place]. The patient is a high school graduate. 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 She indicates having been on disability for about 2 years. TECHNIQUES UTILIZED: Clinical interview, review of medical records, staff consultation and behavioral observation, mini mental status exam 2 standard version and clock drawing. EXAMINATION FINDINGS: The patient was alert and responsive during the interview. However, she was oppositional and reluctant to participate in the assessment. She required increased elaboration to gain her compliance. The patient is lacking insight and awareness as the reason for her hospitalization. She has an amnestic period that surrounds her illness and initial treatment. [facility] [address] [place] [address] CONSULTATION Name: RAMIRO CROOK Room #: 503-P [facility] IN ..#: [id number] Admission: 03/24/17 Attend Phys: Glen Roth MD Discharge: Date of : 59 Report #: [id number] She does not report auditory or visual hallucinations. She has variable affect that is somewhat incongruent. She does not report difficulty with sleep, appetite, energy level or mood. She also denies difficulty with cognitive function. Increased anxiety is suggested. Her performance on the MMSE 2 brief version is extremely low with a raw score of 9/16. She was 3/3 for initial registration, 3/5 for orientation to time and 2/[address]. She was 1/3 for immediate recall of 3 items after a brief time delay and distraction. Her performance on the MMSE 2 standard version was extremely low with a raw score of 18/30. She was 0/5 for serial 7's. She could copy a simple geometric design and write a sentence. The patient was able to draw a clock, but had difficulty with setting the hands at the designated time. Behavior was oppositional and variable effort is likely to have influenced to response. DIAGNOSTIC IMPRESSION: 1. Delirium -- resolved. 2. Neurocognitive disorder, due to medical condition, with decreased insight and intermittent irritability - extent to be determined, severe at this time. RECOMMENDATIONS: The patient will require 24-hour care that includes assistance with the management of her medication, nutrition and general health care needs. She lacks insight into her deficits which places her at increased safety risk. Assistance from family will be noted if she is to return to an independent apartment. She will benefit from an increased explanation of the purpose of therapies and the reason for her participation in treatment to help gain compliance. Verbal praise and compliments about her achievements in therapy and accomplishments specifically will also help further obtain compliance. Thank you very much for allowing me to provide the consultation on this patient. By: [id number] Bowen Navas, PhD /nt
[~2017-03-24 12:32] MED LIST: AUGMENTIN 500-1 EACH PO; COUMADIN 5 MG TA5 M1 PO; DUONEB 2.5-0.5 M3 ML INH; ENOXAPARIN80 MG/0.1 SUBQ; HUMALOG100 UNIT/1 SUBQ; NEURONTIN 300300 M1 PO; NEURONTIN 400400 M1 PO; PREDNISONE 20 M20 M1 PO; TRAMADOL 50 MG50 MG PO
[2017-03-24 17:45] VITALS: BP 138/77
[2017-03-24 20:00] VITALS: BP 131/60
[2017-03-25 05:38] VITALS: BP 126/63
[2017-03-25 05:55] LABS: HEMATOCRIT 32.5 % (37.0-47.0); HEMOGLOBIN 9.5 gm/dL (12.0-15.0); MCHC 29.3 g/dL (28.0-37.0); RBC 3.96 mil/uL (4.20-5.00); RDW 21.3 % (10.5-14.5); WBC 10.8 thou/uL (4.0-11.0)
[2017-03-25 05:59] LABS: PROTIME 20.9 Seconds (9.3-11.4)
[2017-03-25 06:02] LABS: ALBUMIN 2.8 g/dL (3.4-5.0); CALCIUM 8.4 mg/dL (8.5-10.1); CREATININE 1.1 mg/dL (0.6-1.0); PHOSPHORUS 3.4 mg/dL (2.5-4.9); POTASSIUM 4.8 mmol/L (3.5-5.1)
[2017-03-25 16:00] VITALS: BP 142/74
[2017-03-26 04:40] VITALS: BP 137/73
[2017-03-26 05:42] LABS: INR 2.6; PROTIME 26.6 Seconds (9.3-11.4)
[2017-03-26 12:07] VITALS: BP 137/73
[2017-03-26 16:55] VITALS: BP 132/68
[2017-03-27 05:24] LABS: ABSOLUTE NEUTROPHILS 9.5 thou/uL (1.4-8.2); BASOPHILS 0.3 % (0.0-2.0); EOSINOPHILS 1.1 % (0.0-3.0); HEMATOCRIT 31.5 % (37.0-47.0); HEMOGLOBIN 9.3 gm/dL (12.0-15.0); LYMPHOCYTES 20.2 % (24.0-44.0); MCH 23.9 pg (26.0-34.0); MCHC 29.6 g/dL (28.0-37.0); MCV 80.7 fL (80.0-100.0); MONOCYTES 8.8 % (1.0-8.0); PLATELET COUNT 401 thou/uL (150-400); POLYS 69.6 % (36.0-66.0); RDW 21.5 % (10.5-14.5); WBC 13.7 thou/uL (4.0-11.0)
[2017-03-27 05:30] LABS: MANUAL DIFF NO
[2017-03-27 05:31] LABS: INR 2.6; PROTIME 27.2 Seconds (9.3-11.4)
[2017-03-27 05:37] LABS: ANION GAP < 0 mmol/L (7-16); BUN 24 mg/dL (7-18); CALCIUM 8.5 mg/dL (8.5-10.1); CHLORIDE 105 mmol/L (98-107); CO2 39 mmol/L (21-32); CREATININE 0.8 mg/dL (0.6-1.0); GLUCOSE 87 mg/dL (74-106); MAGNESIUM 1.6 mg/dL (1.8-2.4); POTASSIUM 4.8 mmol/L (3.5-5.1); SODIUM 142 mmol/L (136-145)
[2017-03-27 05:50] VITALS: BP 106/68
[2017-03-27 15:56] VITALS: BP 153/81
[2017-03-28 03:41] VITALS: BP 114/59
[2017-03-28 03:54] LABS: INR 2.2; PROTIME 22.6 Seconds (9.3-11.4)
[2017-03-28] MEDS ORDERED: COUMADIN 2 MG TA2 M1 PO (11:42)
[2017-03-28] MEDS ORDERED: COUMADIN 2.5MG2.5 M1 PO (11:43)
[2017-03-28] MEDS ORDERED: PREDNISONE 10 M10 M1 PO (11:43)
[2017-03-28 16:40] VITALS: BP 146/68
[2017-03-29 06:15] VITALS: BP 129/68
[2017-03-29 06:27] LABS: INR 2.1; PROTIME 21.8 Seconds (9.3-11.4)
[2017-03-29] MEDS ORDERED: NEURONTIN 300300 M1 PO (09:20)
[2017-03-29] MEDS ORDERED: VENTOLIN HFA 1818 GM INH (09:20)
[2017-03-29] MEDS ORDERED: AUGMENTIN 500-1 EACH PO (09:20)
== END 2017-03-29 14:58 | disposition home health service (06) | DRG 91 ==
PROVIDERS: Nurse Practitioner; Physical Medicine & Rehabilitation
DX: G93.1 Anoxic brain damage, not elsewhere classified (principal); J96.01 Acute respiratory failure with hypoxia; G93.41 Metabolic encephalopathy; J96.02 Acute respiratory failure with hypercapnia; R57.0 Cardiogenic shock; J69.0 Pneumonitis due to inhalation of food and vomit; K72.00 Acute and subacute hepatic failure without coma; I26.99 Other pulmonary embolism without acute cor pulmonale; E87.2 Acidosis; N17.9 Acute kidney failure, unspecified; E44.0 Moderate protein-calorie malnutrition; G62.9 Polyneuropathy, unspecified; Z96.643 Presence of artificial hip joint, bilateral; G31.84 Mild cognitive impairment of uncertain or unknown etiology; R19.7 Diarrhea, unspecified; E16.2 Hypoglycemia, unspecified; Z68.29 Body mass index [BMI] 29.0-29.9, adult; Z79.899 Other long term (current) drug therapy
CPT/HCPCS: 10112